=== PATIENT | male | born 1975 | race Caucasian/White ===

== ENCOUNTER 2023-05-13 23:20 | Observation (INO) | payer OTHER, SELFPAY ==
--- NOTE | ~2023-05-13 | US_ITS ---
EXAMINATION: US venous doppler [facility] DATE: 05/14/2023 12:19 INDICATION: Lower extremity pain. TECHNIQUE: Grayscale ultrasound images without and with compression and Doppler ultrasound images of the bilateral lower extremity veins were obtained. COMPARISON: None. FINDINGS: The visualized portions of right common femoral vein, profunda (deep) femoral vein, femoral vein, pop liteal vein, peroneal veins, posterior tibial veins, and greater saphenous vein outflow are patent. The visualized portions of left common femoral vein, profunda femoral vein, femoral vein, popliteal v ein, peroneal veins, posterior tibial veins, and greater saphenous vein outflow are patent. IMPRESSION: 1. No deep venous thrombosis. Reviewed, dictated and finalized at location A.
[2023-05-13 23:23] VITALS: BP 154/91; PULSE 101; RESP 15; TEMP 36.6; O2SAT 100
[2023-05-14 00:04] LABS: Basophils Absolute Auto 0.1 K/mm3 (0.0-0.1); Basophils Percent Auto 0.8 % (0.2-1.2); Eosinophils Absolute Auto 0.4 K/mm3 (0-0.3); Eosinophils Percent Auto 2.8 % (0-4.4); Hematocrit 37.2 % (42.0-52.0); Hemoglobin 12.5 g/dL (14.0-18.0); Immature Granulocyte Absolute 0.11 K/mm3 (0.00-0.031); Immature Granulocyte Percent A 0.7 % (0-0.5); Lymphocytes Absolute Auto 4.08 K/mm3 (0.9-3.2); Lymphocytes Percent Auto 27.1 % (18.3-44.2); Mean Corpuscular HGB Conc 33.6 g/dl (32-36); Mean Corpuscular Hemoglobin 32.5 pg (26-34); Mean Corpuscular Volume 96.6 fl (80-100); Mean Platelet Volume 8.1 fl (7.4-10.4); Monocytes Absolute Auto 1.2 K/mm3 (0.1-0.6); Neutrophils Absolute Auto 9.1 K/mm3 (1.3-6.7); Neutrophils Percent Auto 60.6 % (45.5-73.1); Platelet Count Result 277 k/mm3 (150-375); Red Blood Count 3.85 M/mm3 (4.6-6.20); Red Cell Distribution Width 13.6 % (11.5-14.5); White Blood Count 15.1 K/mm3 (4.5-10.0)
--- NOTE | 2023-05-14 00:12 | ED.GENADULT ---
HPI - General Adult General Chief complaint: Extremity Injury, Lower <DIVYA Ruiz Last Filed: 05/14/23 02:54> Stated complaint: both legs hurt, kim horse type like pain <Chente Sosa PA-C - Last Filed: 05/14/23 02:54> Time Seen by Provider: 05/13/23 23:30 <DIVYA Ruiz Last Filed: 05/14/23 02:54> Source: patient <DIVYA Ruiz Last Filed: 05/14/23 02:54> Mode of arrival: ambulatory <DIVYA Ruiz Last Filed: 05/14/23 02:54> Limitations: no limitations <DIVYA Ruiz Last Filed: 05/14/23 02:54> History of Present Illness HPI narrative: This is a 47-year-old male with PMH of psoriasis who presents to the ED with chief complaint of bilateral calf pain for the past 3 nights. Reports it feels like a constant charley horse in both legs. He takes Advil at times and it is somewhat relieved. Patient is concerned for DVT but has no history of DVTs. Denies any focal calf swelling. He endorses psoriasis lesions throughout the lower legs. Also endorses area of redness, warmth, pain to the left anterior valentin. He reports he laid out to 10 by the pool a couple of weeks ago and ended up having a couple of blisters pop up on his leg. He states he decreased the blisters and used warm compresses and has had some redness and pain there ever since. <Chente Sosa PA-C - Last Filed: 05/14/23 02:54> Related Data Home medications: Home Medications Medication Instructions Recorded Confirmed alprazolam 0.25 mg tablet 0.25 mg PO DAILY 05/14/23 05/14/23 doxycycline hyclate 100 mg capsule 100 mg PO BID 05/14/23 05/14/23 hydrocodone 5 mg-acetaminophen 325 1 tablet PO Q4H PRN pain 05/14/23 05/14/23 mg tablet <DIVYA Ruiz Last Filed: 05/14/23 02:54> Allergies/adverse reactions: Allergies Allergy/AdvReac Type Severity Reaction Status Date / Time Penicillins Allergy Hives Verified 05/13/23 23:27 Sulfa (Sulfonamide Allergy Hives Verified 05/13/23 23:27 Antibiotics) <Chente Sosa PA-C - Last Filed: 05/14/23 02:54> Review of Systems Review of Systems: All systems as dictated in HPI <Chente Sosa PA-C - Last Filed: 05/14/23 02:54> [facility] Family History Family History: Family History (Updated 05/14/23 @ 03:30 by Janee Santa RN) Mother Diabetes mellitus Grandparent Myocardial infarct <DIVYA Ruiz Last Filed: 05/14/23 02:54> Social History Social History: Social History Smoking packs per day: 0.5 Smoking cigarettes per day: 10.0 Years smoked: 17 Smoking pack-years: 8.50 Smoking status: Current every day smoker Tobacco type: cigarettes Alcohol intake: never Substance use: never Lack of Transportation: No Lack of Food: Never True Current Housing: I Have Housing Concerned About Future Housing: No Difficulty Paying Gas/Electric Bills: No Difficulty Paying for Meds: No Currently Unemployed: No Education: Master's Degree or Higher Difficulty w/ Childcare or Family Care: No Spiritual care concerns: No <DIVYA Ruiz Last Filed: 05/14/23 02:54> Exam Narrative: GENERAL: Well-appearing, well-nourished, and in no acute distress. HEAD: Normocephalic, atraumatic. EYES: PERRLA and EOMI. ENT: Nares clear, no rhinorrhea or epistaxis. Mucous membranes moist. Oropharynx without tonsillar hypertrophy exudate or other lesions. NECK: Supple. No adenopathy or masses. CHEST: No respiratory distress. Clear to auscultation. No wheezes rales or rhonchi HEART: Regular rate and rhythm. No murmur heard. Normal peripheral pulses. ABDOMEN: Soft, nontender, nondistended, normal active bowel sounds. MSK: Normal range of motion. No edema. SKIN: Erythematous scaled lesions throughout the lower extremities. The left anterior valentin has a 6 x 6 cm area of erythema that is warm and tender to palpation. There are central dark areas of skin. NEURO: A
[2023-05-14 00:14] LABS: Alanine Aminotransferase 27 U/L (6-50); Alkaline Phosphatase 59 U/L (38-126); Anion Gap 6 mmol/L (8-16); Aspartate Amino Transferase 32 U/L (17-59); Bilirubin,Total 0.2 mg/dL (0.2-1.3); Blood Urea Nitrogen 12 mg/dL (9-20); Calcium 9.1 mg/dL (8.4-10.2); Carbon Dioxide 26 mmol/L (22-30); Chloride 99 mmol/L (98-107); Estimated CRCL calculation 106 ml/min; Estimated Glomerular Filt Rate > 60; Glucose 77 mg/dL (65-110); Potassium 3.7 mmol/L (3.4-5.0); Sodium 131 mmol/L (137-145)
[2023-05-14 00:53] LABS: INR 0.9; Prothrombin Time 12.5 Seconds (11.1-14.7)
[2023-05-14 01:05] LABS: D Dimer 0.71 ug/mL (<0.48)
[2023-05-14] MEDS: SODIUM CHLORIDE 0.9% IV 1,000 ML 999 ML IV CONT (02:17)
[2023-05-14] MEDS: ceFAZolin 1 GM/NS 50 ML 1 GM/50 ML BAG IVPB ×2 (02:18→09:21)
[2023-05-14] MEDS: ENOXAPARIN 40 MG/0.4 ML SYRINGE SUB-Q (02:31)
[2023-05-14] MEDS: HYDROcodone/acetaminophen (*CRX) 5-325 MG TABLET 1 TAB PO (02:38)
[2023-05-14 02:53] VITALS: BP 151/97; PULSE 92; RESP 14; O2SAT 99
--- NOTE | 2023-05-14 03:25 | ADMGEN ---
This patient, Abner Watson, was admitted to 3 Med Surg Room 310-01. Patient/family oriented to hospital policies and general routines including ID bracelet, bed and alarms, visiting hours, pain management, procedures, bathroom and other care routines, personal items, smoking policy, room service/diet, and visiting hours. Information on how to activate the Rapid Response Team has been discussed. Patient/Family are encouraged to report perceived risks to care and to ask questions if they do not understand what they are told or what they should do.
[2023-05-14 03:34] VITALS: BP 155/89; PULSE 92; RESP 16; TEMP 36.3; O2SAT 100
[2023-05-14] MEDS: SODIUM CHLORIDE 0.9% IV 1,000 ML 125 ML IV CONT (04:11)
[2023-05-14 08:00] VITALS: O2SAT 100
--- NOTE | 2023-05-14 08:11 | P.HP_ITS ---
H&P: HPI History of Present Illness Date/Time: 05/14/23 08:11 [facility] Family History Family History (Updated 05/14/23 @ 03:30 by Janee Santa RN) Mother Diabetes mellitus Grandparent Myocardial infarct Social History Social History Smoking packs per day: 0.5 Smoking cigarettes per day: 10.0 Years smoked: 17 Smoking pack-years: 8.50 Smoking status: Current every day smoker Tobacco type: cigarettes Alcohol intake: never Substance use: never Lack of Transportation: No Lack of Food: Never True Current Housing: I Have Housing Concerned About Future Housing: No Difficulty Paying Gas/Electric Bills: No Difficulty Paying for Meds: No Currently Unemployed: No Education: Master's Degree or Higher Difficulty w/ Childcare or Family Care: No Spiritual care concerns: No Meds Home Medications and Allergies Home Medications Medication Instructions Recorded Confirmed Type alprazolam 0.25 mg tablet 0.25 mg PO DAILY 05/14/23 05/14/23 History doxycycline hyclate 100 mg capsule 100 mg PO BID 05/14/23 05/14/23 History hydrocodone 5 mg-acetaminophen 325 1 tablet PO Q4H PRN pain 05/14/23 05/14/23 History mg tablet Allergies Allergy/AdvReac Type Severity Reaction Status Date / Time Penicillins Allergy Hives Verified 05/13/23 23:27 Sulfa (Sulfonamide Allergy Hives Verified 05/13/23 23:27 Antibiotics) Vital Signs Vital Signs - 24 hr 05/13/23 23:23 05/14/23 02:53 05/14/23 03:34 Temperature 97.9 F 97.4 F L Pulse Rate 101 H 92 92 Respiratory Rate 15 14 16 Blood Pressure 154/91 H 151/97 H 155/89 H Pulse Oximetry 100 99 100 Oxygen Delivery Room Air 05/14/23 04:00 Temperature Pulse Rate Respiratory Rate Blood Pressure Pulse Oximetry Oxygen Delivery Room Air H&P: Results Labs Labs: Short CBC 05/13/23 Range/Units 23:57 WBC 15.1 H (4.5-10.0) K/mm3 Hgb 12.5 L (14.0-18.0) g/dL Hct 37.2 L (42.0-52.0) % Plt Count 277 (150-375) k/mm3 BMP 05/13/23 23:57 Sodium 131 L Potassium 3.7 Chloride 99 Carbon Dioxide 26 BUN 12 Creatinine 0.80 Glucose 77 Calcium 9.1 Liver Function 05/13/23 Range/Units 23:57 Total Bilirubin 0.2 (0.2-1.3) mg/dL AST 32 (17-59) U/L ALT 27 (6-50) U/L Alkaline Phosphatase 59 (38-126) U/L Albumin 4.0 (3.5-5.1) g/dL Assessment and Plan Assessment and plan (1) Cellulitis: Code(s): L03.90 - Cellulitis, unspecified Status: Acute
[2023-05-14] MEDS: IBUPROFEN 600 MG TABLET PO (08:30)
[2023-05-14 13:30] VITALS: BP 146/93; PULSE 81; RESP 16; TEMP 36.6; O2SAT 100
--- NOTE | 2023-05-14 13:44 | PM.SD2 ---
Same Day Admit/Disch: HPI History of Present Illness Chief complaint: Cellulitis/Elevated D Dimer Narrative: Abner Watson is a 47 year old male who presented to the ER with complaints of left lower extremity swelling and calf pain. The pain had been going on since Wednesday night any was concern for DVT. Of note in the last month he has had psoriasis outbreaks for which he follows with dermatology. He also recently had an upper lobe left buttocks abscess that was drained by his PA and he was put on doxycycline for 2 week course. He has 2 small lesions on his left lower extremity that were concerning for cellulitis. They do not seem to be getting better with doxycycline on board. He says that he has use some warm compresses which tend to help with the swelling. The 1 lesion has a small opening and is draining clear fluid. The surrounding 2 lesions have blanchable redness with no fluctuance present. ER admitted him for rule out DVT and IV antibiotics. Clinically the patient looks well has no systemic complaints. He is tolerating a diet. 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 Left lower extremity DVT was ruled out therefore will transition to p.o. antibiotics and discharge home. [facility] Family History Family History (Updated 05/14/23 @ 03:30 by Janee Santa RN) Mother Diabetes mellitus Grandparent Myocardial infarct Social History Social History Smoking packs per day: 0.5 Smoking cigarettes per day: 10.0 Years smoked: 17 Smoking pack-years: 8.50 Smoking status: Current every day smoker Tobacco type: cigarettes Alcohol intake: never Substance use: never Lack of Transportation: No Lack of Food: Never True Current Housing: I Have Housing Concerned About Future Housing: No Difficulty Paying Gas/Electric Bills: No Difficulty Paying for Meds: No Currently Unemployed: No Education: Master's Degree or Higher Difficulty w/ Childcare or Family Care: No Spiritual care concerns: No Same Day Admit/Disch: Med Pre-admit Medications Home Medications Medication Instructions Recorded Confirmed Type alprazolam 0.25 mg tablet 0.25 mg PO DAILY 05/14/23 05/14/23 History doxycycline hyclate 100 mg capsule 100 mg PO BID 05/14/23 05/14/23 History hydrocodone 5 mg-acetaminophen 325 1 tablet PO Q4H PRN pain 05/14/23 05/14/23 History mg tablet Review of Systems Review of Systems All systems reviewed & are unremarkable except as noted in HPI and below Exam Narrative: General: well-nourished, well-appearing 47-year-old male, sitting up in bed, comfortable, NARD Neuro: awake, alert and oriented x4, speech clear, no focal neuro deficits noted HEENMT: normocephalic, atraumatic, EOMI, sclerae anicteric, moist oral mucosa Respiratory: Clear to auscultation bilaterally without crackles, rhonchi or wheezes, nonlabored breathing Cardio: regular rate, regular rhythm with S1-S2 Abdomen: nondistended, normoactive bowel sounds, soft, nontender to palpation Extremities: slight edema and blanchable erythema to left lower extremity with 2 lesions present. No fluctuance present, the area is tender to palpation, DP pulses 2+ bilaterally Skin: no rashes or lesions, warm and dry Psych: appropriate mood and affect, judgment and insight intact DS: Data Data Completed and Pending Completed studies during hospitalization: EXAMINATION: US venous doppler [facility] DATE: 05/14/2023 12:19 INDICATION: Lower extremity pain. TECHNIQUE: Grayscale ultrasound images without and with compression and Doppler ultrasound images of the bilateral lower extremity veins were obtained. COMPARISON: None. FINDINGS: The visualized portions of right common femoral vein, profunda (deep) femoral vein, femoral vein, popliteal vein, peroneal veins, posterior tibial veins, and greater saphenous vein outflow are patent. The visualized portions of left common femoral vein, profunda f
== END 2023-05-14 14:27 | disposition home or self-care (01) ==
LOC: ANHED 05-14 01:53 → ANH3MEDSUR 05-14 02:54
PROVIDERS: Admitting Provider Internal Medicine; Emergency Provider Physician Assistant; Visit Provider Internal Medicine
DX: L03.116 Cellulitis of left lower limb (principal); L03.115 Cellulitis of right lower limb; L40.9 Psoriasis, unspecified; F17.210 Nicotine dependence, cigarettes, uncomplicated
CPT/HCPCS: 36415; 80053; 83605; 85025; 85380; 85610; 85730; 87040; 93970; 96361; 96365; 96366; 96372; 99285; A9270; G0378; J0690; J1650; J7030

== ENCOUNTER 2024-10-22 13:46 | Emergency (ER) | payer OTHER, SELFPAY ==
--- NOTE | ~2024-10-22 | XR_ITS ---
EXAMINATION: [id number] Exam Date/Time: 10/22/2024 14:08 [employer] HISTORY: pain left posterolateral today Comparison: None. RESULT: Lines, tubes, and devices: Cholecystectomy clips. Lungs and pleura: Clear. Cardiomediastinal silhouette: Stable. Other: No acute osseous or upper abdominal finding. IMPRESSION: No acute cardiopulmonary process. No acute osseous finding in the left ribs. Reviewed, dictated and finalized at location K. [employer]
[2024-10-22 13:57] VITALS: BP 161/96; PULSE 98; RESP 16; TEMP 36.6; O2SAT 100
--- NOTE | 2024-10-22 14:05 | ED.BACK ---
HPI - Back Pain/Injury General Chief Complaint: Back Pain/Injury Stated Complaint: Lower back back Time Seen by Provider: 10/22/24 13:56 Source: patient and RN notes reviewed Mode of arrival: ambulatory Limitations: no limitations History of Present Illness HPI Narrative: Patient presents today complaining of left mid back/rib pain. Area with sudden-onset pain this morning when he turned over in bed. Denies numbness or tingling in the extremities. Denies radiation of the pain. Currently rates his pain 8/10, which increases with coughing. He has tried ibuprofen without relief. Three days ago patient fell on some ice and injured his low back, but this area seems to be improving. Patient has been moving boxes and bags from 1 house to another over the past couple of days as well Related Data Allergies Allergy/AdvReac Type Severity Reaction Status Date / Time Penicillins Allergy Hives Verified 10/22/24 13:56 Sulfa (Sulfonamide Allergy Hives Verified 10/22/24 13:56 Antibiotics) Review of Systems Review of Systems: CONSTITUTIONAL: Denies body aches, fever, chills, or sweats. EYES: Denies visual changes, redness, or discharge. ENT: Denies rhinorrhea, congestion, sore throat, or otalgia. CARDIOVASCULAR: Denies chest pain, palpitations, or edema. RESPIRATORY: Denies cough or dyspnea. GASTROINTESTINAL: Denies abdominal pain, nausea, vomiting, or diarrhea. GENITOURINARY: Denies dysuria or hematuria. SKIN: Denies rash, itching, or wounds. MUSCULOSKELETAL: + left mid back/rib pain NEUROLOGIC: Denies headache, numbness, tingling, or weakness. PSYCH: Denies depression or anxiety. [facility] Family History Family History Mother Diabetes mellitus Grandparent Myocardial infarct Social History Social History Smoking packs per day: 0.5 Smoking cigarettes per day: 10.0 Years smoked: 17 Smoking pack-years: 8.50 Smoking status: Current every day smoker Tobacco type: cigarettes Alcohol intake: never Substance use: never Lack of Transportation: No Lack of Food: Never True Current Housing: I Have Housing Concerned About Future Housing: No Difficulty Paying Gas/Electric Bills: No Difficulty Paying for Meds: No Currently Unemployed: No Education: Master's Degree or Higher Difficulty w/ Childcare or Family Care: No Spiritual care concerns: No Comments At time of signature, I have reviewed and agree with nursing past medical, surgical, social and family history unless otherwise noted. Please see nursing chart for further information. There is no relevant family history pertinent to the presenting complaint Exam Narrative: GENERAL: Well-appearing, well-nourished, and in no acute distress. HEAD: Normocephalic, atraumatic. EYES: EOMI. No redness or drainage. Conjunctivae normal. ENT: Mucous membranes pink and moist. NECK: Normal AROM. CHEST: No respiratory distress. Clear to auscultation. HEART: Regular rate and rhythm. No murmur appreciated. MUSCULOSKELETAL: No bony tenderness of the thoracic or lumbar spine. No right-sided paraspinal muscle tenderness. Patient has some a left mid thoracic paraspinal muscle tenderness that extends laterally. No crepitus, step-off, ecchymosis, edema. EXTREMITIES: Normal range of motion. No edema. SKIN: Warm, dry, no rash. Capillary refill normal. Normal skin turgor. NEURO: No focal deficits. Alert and oriented x3. Gait steady. PSYCH: Normal affect. No signs of depression or anxiety. Course Course Level of Care: Express Care Visit Vital Signs Vital signs: Vital Signs Temperature 97.8 F 10/22/24 13:57 Pulse Rate 98 10/22/24 13:57 Respiratory Rate 16 10/22/24 13:57 Blood Pressure 161/96 H 10/22/24 13:57 Pulse Oximetry 100 10/22/24 13:57 Temperature 97.8 F 10/22/24 13:57 Pulse Rate 98 10/22/24 13:57 Respiratory Rate 16 10/22/24 13:57 Blood Pressure 161/96 H 10/22/24 13:57 Pulse Oximetry 100 10/22/24 13:57 Reviewed MDM - Back Pain/Injury MDM Narrative Medical decision making narrative: Rib x-ray is negative for any acute findings. Symptoms are likely due to muscle strain in the chest wall/thoracic spine area. Prescription for Flexeril and diclofenac sent to pharmacy. Anticipatory guidance given. Differential Diagnosis Differential diagnosis: Likely lumbar radiculopathy, strain of lumbar region and other (rib fracture, chest wall strain) Imaging Data Radiologist's impression: ITS Impressions Ribs w/Chest X-Ray 10/22/24 14:21 IMPRESSION: No acute cardiopulmonary process. No acute osseous finding in the left ribs. Critical Care Time Critical Care Time Critical Care Time: No Discharge Plan Discharge Clinical Impression: Strain of mid-back Qualifiers: Encounter type: initial encounter Qualified Code(s): S29.012A - Strain of muscle and tendon of back wall of thorax, initial encounter Patient Disposition: Home, Self-Care Condition: Stable Instructions: Thoracic Back Strain (ED) Additional Instructions: Your rib x-ray is negative. Please take the diclofenac and Flexeril as directed. Use a heating pad to help relax your muscles. No heavy lifting, twisting until your symptoms have improved. Follow-up your PCP in 1 week if you are not seeing any improvement. Your blood pressure was elevated above 120/80 today at Urgent Care. This puts you above the threshold for follow up. Please schedule a followup visit with your personal physician as soon as possible, for further evaluation and treatment. Even blood pressure exceeding 120/80 may indicate pre-hypertension. Patient Language: Bulgarian Prescriptions: New cyclobenzaprine 10 mg tablet 10 mg PO TID PRN (Reason: muscle spasm) Qty: 20 0RF diclofenac sodium 50 mg tablet,delayed release (DR/EC) 50 mg PO TID PRN (Reason: pain) Qty: 20 0RF Follow-up/Referrals: PHYSICIAN,DIRECTOR MARKET RESEARCH [Primary Care Provider] - Time of Disposition: 14:38
== END 2024-10-22 14:43 | disposition home or self-care (01) ==
PROVIDERS: Emergency Provider Nurse Practitioner
DX: S29.012A Strain of muscle and tendon of back wall of thorax, initial encounter (principal); X58.XXXA Exposure to other specified factors, initial encounter; L40.9 Psoriasis, unspecified; F17.210 Nicotine dependence, cigarettes, uncomplicated
CPT/HCPCS: 71101; 99213; G0463